=== PATIENT | female | born 1960 | race Two or more races ===

== ENCOUNTER → 2018-01-30 | Outpatient (CLI) | payer BC | END | disposition home or self-care (01) | LOC: MSC 10:00 | PROVIDERS: ATTEND Anesthesiology | DX: T84.84XD Pain due to internal orthopedic prosthetic devices, implants and grafts, subsequent encounter (principal); M47.27 Other spondylosis with radiculopathy, lumbosacral region; M96.1 Postlaminectomy syndrome, not elsewhere classified; M62.830 Muscle spasm of back; M79.2 Neuralgia and neuritis, unspecified; M17.0 Bilateral primary osteoarthritis of knee; M25.9 Joint disorder, unspecified; F11.20 Opioid dependence, uncomplicated; G89.29 Other chronic pain; Z98.1 Arthrodesis status; Z96.652 Presence of left artificial knee joint ==